=== PATIENT | male | born 2005 | race Hispanic/Latino ===

== ENCOUNTER 2024-01-03 01:10 | Emergency (ER) | payer OTHER ==
[~2024-01-03] VITALS: Ht 172.7 cm; Wt 79.4 kg
[2024-01-03] MEDS: KETOROLAC 15MG/ML VIAL (15MG/ML) IM STA (01:45)
[2024-01-03 02:25] VITALS: BP 137/91; PULSE 63; RESP 15; O2SAT 100
[2024-01-03] MEDS ORDERED: CEPH500B PO (02:38)
[2024-01-03] MEDS ORDERED: KETO10TA2 PO (02:38)
== END 2024-01-03 02:47 | disposition home or self-care (01) ==
LOC: EDH 01:10
DX: S90.561A Insect bite (nonvenomous), right ankle, initial encounter (principal); Z88.7 Allergy status to serum and vaccine; W57.XXXA Bitten or stung by nonvenomous insect and other nonvenomous arthropods, initial encounter; Y93.89 Activity, other specified; Y92.89 Other specified places as the place of occurrence of the external cause; Y99.8 Other external cause status
CPT/HCPCS: 99283; 73600; 96372; J1885